=== PATIENT | male | born 1980 | race African-American/Black ===

== ENCOUNTER 2019-02-26 18:49 | Emergency (ER) | payer MEDICAID, MEDICARE ==
[~2019-02-26] VITALS: Ht 165.1 cm; Wt 74.0 kg
[2019-02-26] MEDS ORDERED: HYDROCODONE/ACETAMINOPHEN 10/325MG TABLET PO ONE (23:45)
[2019-02-26] MEDS ORDERED: ONDANSETRON 4MG ODT PO ONE (23:45)
[2019-02-26] MEDS ORDERED: KETOROLAC 30MG/ML VIAL IM ONE (23:45)
[2019-02-26] MEDS ORDERED: TETANUS, DIPHTHERIA, PERTUSSIS VAC/PF 0.5ML (>7YR OLD) IM ONE (23:45)
[2019-02-26] MEDS ORDERED: BACITRACIN ZINC OINT UDPKT TOP ONE (23:45)
[2019-02-27] MEDS ORDERED: KETOROLAC 15MG/ML VIAL IM NR (00:15)
[2019-02-27 01:56] VITALS: BP 128/78
== END 2019-02-27 02:01 | disposition home or self-care (01) ==
LOC: ER 18:49
DX: S50.312A Abrasion of left elbow, initial encounter (principal); S09.8XXA Other specified injuries of head, initial encounter; V09.09XA Pedestrian injured in nontraffic accident involving other motor vehicles, initial encounter; Y93.01 Activity, walking, marching and hiking; Y92.481 Parking lot as the place of occurrence of the external cause; Y99.8 Other external cause status
CPT/HCPCS: 70450; 90471; 90715; 96372; 99284; J1885; Q0162

== ENCOUNTER 2019-03-03 09:35 | Emergency (ER) | payer MEDICAID ==
[~2019-03-03] VITALS: Ht 170.2 cm; Wt 78.0 kg
[2019-03-03] MEDS ORDERED: IBUPROFEN 600MG TABLET PO ONE (10:15)
[2019-03-03 11:15] VITALS: BP 122/71
== END 2019-03-03 11:25 | disposition home or self-care (01) ==
LOC: ER 09:35
DX: S09.8XXA Other specified injuries of head, initial encounter (principal); V03.90XA Pedestrian on foot injured in collision with car, pick-up truck or van, unspecified whether traffic or nontraffic accident, initial encounter; Y93.89 Activity, other specified; Y92.488 Other paved roadways as the place of occurrence of the external cause
CPT/HCPCS: 99284